=== PATIENT | female | born 1940 | race Caucasian/White ===

== ENCOUNTER 2018-05-24 14:59 | Emergency (ER) | payer OTHER ==
[~2018-05-24] VITALS: Ht 165.1 cm; Wt 83.0 kg
[~2018-05-24 14:59] MED LIST: LOSARTAN POTASS50 MG; NABUMETONE500 MG PO; PERCOCET 5/3251 TAB PO; SYNTHROID50 MCG
== END 2018-05-24 17:32 | disposition home or self-care (01) ==
LOC: ER 14:59
DX: M76.892 Other specified enthesopathies of left lower limb, excluding foot (principal)